=== PATIENT | male | born 1940 | race Caucasian/White ===

== ENCOUNTER → 2017-02-02 | Outpatient (CLI) | payer MEDICARE, OTHER ==
[~2017-02-02] MED LIST: ASA CHILDREN'S81 MG PO; BRILINTA90 MG PO; CLARITIN DPS10 MG PO; COREG DPS12.5 MG PO; DYAZIDE 37.5-21 EACH PO; FISH OIL300 MG PO; GLUCOSAMINE H1500 MG PO; HYDROCODONE 5MG/5 MG PO; LEVAQUIN500 MG PO; LIPITOR DPS20 MG PO; LIPITOR40 MG PO; MOBIC15 MG PO; NEURONTIN DPS300 MG PO; NEXIUM20 M1 PO; NEXIUM40 MG PO; NITROSTAT0.4 MG SL; NORCO 5-325 TA1 EACH PO; NORVASC5 MG PO; OMEGA-3 DPS1000 MG PO; REQUIP DPS0.5 MG PO; ZESTRIL DPS40 MG PO; ZYRTEC DPS10 MG PO
== END | disposition home or self-care (01) ==
LOC: PTH.S 01-26 11:00 → RAD.S 09:15
DX: L03.032 Cellulitis of left toe (principal); M86.272 Subacute osteomyelitis, left ankle and foot; I70.223 Atherosclerosis of native arteries of extremities with rest pain, bilateral legs; L97.522 Non-pressure chronic ulcer of other part of left foot with fat layer exposed; R60.9 Edema, unspecified